=== PATIENT | female | born 1995 | race American Indian/Alaskan Native ===

== ENCOUNTER 2020-07-23 12:20 | Emergency (ER) | payer SELFPAY ==
[2020-07-23] MEDS ORDERED: IBUPROFEN 800 MG TAB PO ONE (12:24)
--- NOTE | 2020-07-23 12:29 | Emergency Department Report ---
ED Lower Extremity HPI - General Stated Complaint: FOOT INJURY Time Seen by Provider: 07/23/20 12:24 - History of Present Illness Initial Comments: This is a 24-year-old female nontoxic, well nourished in appearance, no acute signs of distress presents to the ED with c/o of left foot pain 1 month. Patient stated that she was playing basketball and injured it last month but denies seeing someone for this. Patient denies any other trauma. Patient de nies any numbness, tingling, fever, chills, nausea, vomiting, chest pain, shortness of breath, headache, stiff neck. Patient denies any joint swelling or joint redness. Patient denies decreased range of motion. Patient stated has decreased gait due to pain. Patient denies any allergies or significant past medical history. MD Complaint: foot injury -: month(s) (1) Injury: Foot: Left Place: street/outdoors Severity: mild Severity scale (0 -10): 8 Improves With: immobilization Worsens With: weight bearing, movement, palpation Context: fall Associated Symptoms: able to partially bear weight. denies: snap/pop sensation, swelling, numbness, tingling, unable to bear weight, ambulatory - Related Data Previous Rx's Medication Instructions Recorded Last Taken Type Naproxen 500 mg PO Q12H PRN #12 tablet 07/23/20 Unknown Rx ED Review of Systems ROS: Stated complaint: FOOT INJURY Other details as noted in HPI Constitutional: denies: chills, fever Eyes: denies: eye pain, eye discharge, vision change ENT: denies: ear pain, throat pain Respiratory: denies: cough, shortness of breath, wheezing Cardiovascular: denies: chest pain, palpitations Endocrine: no symptoms reported Gastrointestinal: denies: abdominal pain, nausea, diarrhea Genitourinary: denies: urgency, dysuria, discharge Musculoskeletal: denies: back pain, joint swelling, arthralgia Skin: denies: rash, lesions Neurological: denies: headache, weakness, paresthesias Psychiatric: denies: anxiety, depression Hematological/Lymphatic: denies: easy bleeding, easy bruising ED Past Medical Hx - Medications Home Medications: Home Medications Medication Instructions Recorded Confirmed Last Taken Type Naproxen 500 mg PO Q12H PRN #12 tablet 07/23/20 Unknown Rx ED Physical Exam - General General appearance: alert, in no apparent distress - Head Head exam: Present: atraumatic, normocephalic - Neck Neck exam: Present: normal inspection, full ROM. Absent: tenderness - Respiratory Respiratory exam: Absent: respiratory distress - Cardiovascular Cardiovascular Exam: Present: regular rate - Extremities Exam Extremities exam: Present: full ROM, tenderness, normal capillary refill. Absent: joint swelling, calf tenderness - Expanded Lower Extremity Exam Left Hip exam: Present: normal inspection, full ROM. Absent: tenderness, swelling Upper Leg exam: Present: normal inspection, full ROM. Absent: tenderness, swelling Knee exam: Present: normal inspection, full ROM. Absent: tenderness, swelling Lower Leg exam: Present: normal inspection, full ROM. Absent: tenderness, swelling Ankle exam: Present: normal inspection, full ROM. Absent: tenderness, swelling Foot/Toe exam: Present: full ROM, tenderness. Absent: swelling, abrasion, laceration, ecchymosis, deformity, crepidus, dislocation, erythema, amputation, puncture wound, foreign body, calcaneal tenderness, tenderness at base of 5th metatarsal, nail avulsion, subungual hematoma Neuro vascular tendon exam: Present: no vascular compromise Gait: Positive: observed and limited by pain - Back Exam Back exam: Present: normal inspection, full ROM. Absent: tenderness, CVA tenderness (R), CVA tenderness (L), muscle spasm, paraspinal tenderness, vertebral tenderness, rash noted - Neurological Exam Neurological exam: Present: alert, oriented X3 - Psychiatric Psychiatric exam: Present: normal affect, normal mood - Skin Skin exam: Present: warm, dry, intact, normal color. Absent: rash ED Course Vital Signs 07/23/20 07/23/20 12:39 12:42 Temperature 98.3 F 98.3 F Pulse Rate 93 H 93 H Respiratory 16 16 Rate Blood Pressure 120/75 Blood Pressure 120/75 [Left] O2 Sat by Pulse 100 100 Oximetry - Reevaluation(s) Reevaluation #1: 07/23/20 12:34 Patient is speaking in full sentences with no signs of distress noted. ED Lower Extremity MDM - Radiology Data Referring Physician: AMY POPE Patient Name: GERALD IRVIN Date of : 1993-01-15 Sex: Female Report Date: 2020-07-23 Report Status: Finalized [facility] [address] [place] [address] XRay Report Signed Patient: GERALD IRVIN MR#: [id number] 87 : 01/15/1993 Acct:[id number] Age/Sex: 27 / F ADM Date: 07/23/20 Loc: ED Attending Dr: Ordering Physician: AMY POPE NP Date of Service: 07/23/20 Procedure(s): XR foot 3+V LT Accession Number(s): [id number] cc: AMY POPE NP Fluoro Time In Minutes: LEFT FOOT 3 VIEWS INDICATION: foot pain. COMPARISON: No relevant prior imaging study available. FINDINGS: No acute skeletal abnormality. No soft tissue swelling. No significant degenerative changes. IMPRESSION: 1. No acute findings. Signer Name: Gerhard Holder MD Signed: 07/23/2020 12:18 PM Workstation Name: [id number] Transcribed By: LAURA Dictated By: Grehard Holder MD Electronically Authenticated By: Gerhard Holder MD Signed Date/Time: 07/23/201217 DD/ 17 TD/TT: Xrays has been performed on MR # [id number] due wrong patient placed by registration. - Medical Decision Making This is a 24-year-old female that presents with left foot strain. Patient is stable and was examined by me. I referred patient to an orthopedic doctor for further evaluation for possible MRI. Xrays has been performed on MR # [id number] due wrong patient placed by registration. Patient is notified of the x-ray report with noted by the patient. No joint swelling. No ecchymosis. no joint redness or swelling. Not warm to touch. No signs of cellulites present. Patient was instructed to RICE therapy. Patient received Motrin for pain. Pa niko is discharged with Naproxen. At time of discharge, the patient does not seem toxic or ill in appearance. No acute signs of distress noted. Patient agrees to discharge treatment plan of care. No further questions noted by the patient. Critical care attestation.: If time is entered above; I have spent that time in minutes in the direct care of this critically ill patient, excluding procedure time. ED Disposition Clinical Impression: Strain of left foot Qualifiers: Encounter type: initial encounter Qualified Code(s): S96.912A - Strain of unspecified muscle and tendon at ankle and foot level, left foot, initial encounter Disposition: - TO HOME OR SELFCARE Is pt being admited?: No Does the pt Need Aspirin: No Condition: Stable Instructions: RICE Therapy (ED) Additional Instructions: Follow-up with a primary care doctor in 3-5 days or if symptoms worsen and continue return to emergency room as soon as possible. No physical activity that extremity until cleared by orthopedic doctor Prescriptions: Naproxen 500 mg PO Q12H PRN #12 tablet PRN Reason: Pain , Severe (7-10) Referrals: PRIMARY CARE, [Referring] - 3-5 Days GERMAN AGUAYO MD [Staff Physician] - 3-5 Days Forms: Work/School Release Form(ED)
[2020-07-23 12:40] VITALS: BP 120/75
--- NOTE | 2020-07-23 13:12 | XRay Report ---
LEFT FOOT 3 VIEWS INDICATION: foot pain. COMPARISON: No relevant prior imaging study available. FINDINGS: No acute skeletal abnormality. No soft tissue swelling. No significant degenerative changes. IMPRESSION: 1. No acute findings. Signer Name: Gerhard Holder MD Signed: 07/23/2020 12:18 PM Workstation Name: [id number]
== END 2020-07-23 12:58 | disposition home or self-care (01) ==
LOC: ED 12:20
DX: S96.912A Strain of unspecified muscle and tendon at ankle and foot level, left foot, initial encounter (principal); X58.XXXA Exposure to other specified factors, initial encounter; Y93.89 Activity, other specified; Y92.89 Other specified places as the place of occurrence of the external cause; Y99.8 Other external cause status
CPT/HCPCS: 99283

== ENCOUNTER 2022-07-11 19:43 | Outpatient (CLI) | payer MEDICAID ==
[2022-07-11 20:15] VITALS: BP 107/59
[2022-07-11] MEDS ORDERED: LACTATED RINGERS 1,000 ML IV ONE (20:26)
[2022-07-11 20:51] LABS: Color,Urine Straw (Yellow)
[2022-07-11 20:52] LABS: Mucus,Urine 2+ /HPF
[2022-07-11] MEDS ORDERED: ACETAMINOPHEN 500 MG TAB PO ONE (22:55)
--- NOTE | 2022-07-11 23:58 | Ultrasound Report ---
ULTRASOUND OBSTETRIC INDICATION / CLINICAL INFORMATION: cervical length. - Clinical Gestational Age (GA) in weeks, days: 25, 1 TECHNIQUE: Transabdominal and Transvaginal. COMPARISON: None available. FINDINGS: Single intrauterine . Biparietal Diameter = 6.3 cm = 25, 3 weeks, days Head Circumference = 23.2 cm = 25, 1 weeks, days Abdominal Circumference = 21.1 cm = 25, 5 weeks, days Femur Length = 4.6 cm = 25, 2 weeks, days Average Ultrasound Age (AUA) = 25, 3 weeks, days Heart Rate: 148 beats per minute. Estimated Weight in grams (if calculated): 816 Estimated Weight Growth Percentile (if calculated): 55 Position: cephalic. Cervix: closed. Length in cm (if measured): 3.83 Amniotic Fluid Volume: normal Amniotic Fluid Index (DAWSON) in cm (if calculated): 15.4. Maternal Adnexa: No significant abnormality. IMPRESSION: 1. Single, living intrauterine with estimated sonographic age of 25, 3 weeks, days. 2. No significant sonographic abnormality. 3. Cervical length of 3.83 cm. 4. Amniotic fluid index of 15.4. Signer Name: Zafar Humphreys MD Signed: 07/11/2022 11:53 PM Workstation Name: [email or web address]
== END 2022-07-11 23:33 | disposition home or self-care (01) ==
LOC: TRG 19:43 → APU 19:48 → TRG 23:33
PROVIDERS: ATTEND Obstetrics & Gynecology Gynecology
DX: O26.893 Other specified pregnancy related conditions, third trimester (principal); R10.30 Lower abdominal pain, unspecified; R11.10 Vomiting, unspecified; Z3A.25 25 weeks gestation of pregnancy
CPT/HCPCS: 36415; 76816; 76817; 81001; 82731